=== PATIENT | female | born 1955 | race Caucasian/White ===

== ENCOUNTER 2021-04-09 08:23 | Emergency (ER) | payer BC ==
--- NOTE | 2021-04-09 09:37 | EDM.PDOC ---
ED HPI GENERAL MEDICAL PROBLEM - General Chief Complaint: Neurological Problem Stated Complaint: LT LEG PAIN\ SENT FROM [facility] Time Seen by Provider: 04/09/21 09:36 - History of Present Illness INITIAL COMMENTS - FREE TEXT/NARRATIVE: 65-year-old female presents to the emergency room with left leg weakness. And elevated blood pressure. Patient was seen at the walk-in clinic and referred to us. Patient has an unusual history she has had left leg weakness for most a week. This started immediately after she fell forward landing on her knees and hands. She skinned her knee on the left side does not have significant pain. But she has had weakness in this left leg since then. Denies significant back pain. She says she sees a chiropractor on a regular basis but does not have a regular physician. The patient also gives a history of having some left arm numbness and possible weakness about 6 weeks ago. This was associated with speech problems. It got better after a few minutes and has not returned. Patient has not sought medical attention. However did have the Covid vaccine. - Related Data Allergies Allergy/AdvReac Type Severity Reaction Status Date / Time No Known Allergies Allergy Verified 04/09/21 08:41 Home Meds: Home Meds . [No Known Home Meds] 04/09/21 [History] Past Medical History - Past Health History Medical/Surgical History: Denies Medical/Surgical History - Infectious Disease History Infectious Disease History: Reports: None Social & Family History - Tobacco Use Tobacco Use Status *Q: Never Tobacco User Second Hand Smoke Exposure: No - Recreational Drug Use Recreational Drug Use: No ED ROS GENERAL - Review of Systems Review Of Systems: See Below Constitutional: Reports: No Symptoms HEENT: Reports: No Symptoms, Other. Denies: Vision Change Respiratory: Reports: No Symptoms Cardiovascular: Reports: No Symptoms, Blood Pressure Problem (Patient has never been told she has had high blood pressure in the past but is sure up there today.) Endocrine: Reports: No Symptoms GI/Abdominal: Reports: No Symptoms : Reports: No Symptoms Musculoskeletal: Reports: No Symptoms Skin: Reports: No Symptoms Neurological: Reports: Difficulty Walking, Weakness ED EXAM, GENERAL - Physical Exam Exam: See Below Exam Limited By: No Limitations General Appearance: Alert, No Apparent Distress, Obese, Other (Pressure was initially 229/121 it is now down to 183/114 we will continue to observe this.) Eye Exam: Right Eye: Other (Patient's right eye is dilated compared to the left and this is fairly significant), Bilateral Eye: EOMI Ears: Normal External Exam, Normal Canal, Hearing Grossly Normal, Normal TMs Ear Exam: Right Ear: Tenderness Nose: Normal Inspection, Normal Mucosa, No Blood Throat/Mouth: Normal Inspection, Normal Lips, Normal Teeth, Normal Gums, Normal Oropharynx, Normal Voice, No Airway Compromise Head: Atraumatic, Normocephalic Neck: Normal Inspection, Supple, Non-Tender, Full Range of Motion. No: Lymphadenopathy (L), Lymphadenopathy (R) Respiratory/Chest: No Respiratory Distress, Lungs Clear, Normal Breath Sounds Cardiovascular: Regular Rate, Rhythm, No Edema, No Murmur GI/Abdominal: Normal Bowel Sounds, Soft, Non-Tender Back Exam: Normal Inspection. No: CVA Tenderness (L), CVA Tenderness (R), Vertebral Tenderness Extremities: Normal Inspection, Non-Tender, Other (Left leg is weaker than the right. Left arm Tinel's Phalen's reverse Phalen's is normal. No calf tenderness with palpation) Neurological: Alert, Oriented, Normal Cognition. No: No Motor/Sensory Deficits (Left leg is weaker with the knee flexors and extensors ankle flexors and extensors. And at the hip extensors. No sensory deficits), Abnormal Reflexes (And and reflexes are equal and appropriate at the patella tendon bilaterally diminished bilaterally at the Achilles.) Psychiatric: Normal Affect, Normal Mood Skin Exam: Warm, Dry, Intact #1 Interpretation EKG Date: 04/09/21 Rhythm: NSR Rate (Beats/Min): 75 [place]: Normal P-Wave: Present QRS: Other (Poor R wave progression precordial leads) ST-T: Other (Slightly prominent T waves V2 in the setting of no chest pain) Comparison: NA - No Prior EKG EKG Interpretation Comments: Abnormal EKG Course - Vital Signs Last Recorded V/S: Last Vital Signs Temp 36.8 C 04/09/21 08:31 Pulse 89 04/09/21 16:07 Resp 16 04/09/21 16:07 BP 163/84 H 04/09/21 16:07 Pulse Ox 99 04/09/21 16:07 - Orders/Labs/Meds Orders: Active Orders 24 hr Category Date Time Status CORONAVIRUS COVID-19 JUVENAL [[facility]] Stat Lab 04/09/21 15:11 Received Labs: Laboratory Tests 04/09/21 04/09/21 04/09/21 Range/Units 10:08 10:08 10:08 WBC 6.63 (3.98-10.04) K/mm3 RBC 5.35 H (3.98-5.22) M/mm3 Hgb 15.7 (11.2-15.7) gm/dl Hct 46.8 H (34.1-44.9) % MCV 87.5 (79.4-94.8) fl MCH 29.3 (25.6-32.2) pg MCHC 33.5 (32.2-35.5) g/dl RDW Std Deviation 43.5 (36.4-46.3) fL Plt Count 284 (182-369) K/mm3 MPV 9.5 (9.4-12.3) fl Neut % (Auto) 59.9 (34.0-71.1) % Lymph % (Auto) 28.4 (19.3-51.7) % [place] % (Auto) 6.8 (4.7-12.5) % Eos % (Auto) 0.8 (0.7-5.8) Baso % (Auto) 1.4 H (0.1-1.2) % Neut # (Auto) 3.98 (1.56-6.13) K/mm3 Lymph # (Auto) 1.88 (1.18-3.74) K/mm3 [place] # (Auto) 0.45 H (0.24-0.36) K/mm3 Eos # (Auto) 0.05 (0.04-0.36) K/mm3 Baso # (Auto) 0.09 H (0.01-0.08) K/mm3 Manual Slide Review Normal smear PT 9.9 (9.7-12.0) SECONDS INR < 0.93 APTT 23.7 (21.7-31.4) SECONDS Sodium 138 (136-145) mEq/L Potassium 4.5 (3.5-5.1) mEq/L Chloride 101 (98-107) mEq/L Carbon Dioxide 27 (21-32) mEq/L Anion Gap 14.5 (5-15) BUN 14 (7-18) mg/dL Creatinine 0.6 (0.55-1.02) mg/dL Est Cr Clr Drug Dosing 81.80 mL/min Estimated GFR (MDRD) > 60 (>60) mL/min BUN/Creatinine Ratio 23.3 H (14-18) Glucose 322 H (70-99) mg/dL Hemoglobin A1c ( - 5.6) % Calcium 9.1 (8.5-10.1) mg/dL Total Bilirubin 0.5 (0.2-1.0) mg/dL AST 13 L (15-37) U/L ALT 25 (14-59) U/L Alkaline Phosphatase 75 (46-116) U/L Troponin I < 0.017 (0.00-0.056) ng/mL Total Protein 6.8 (6.4-8.2) g/dl Albumin 3.5 (3.4-5.0) g/dl Globulin 3.3 gm/dL Albumin/Globulin Ratio 1.1 (1-2) 04/09/21 Range/Units 10:08 WBC (3.98-10.04) K/mm3 RBC (3.98-5.22) M/mm3 Hgb (11.2-15.7) gm/dl Hct (34.1-44.9) % MCV (79.4-94.8) fl MCH (25.6-32.2) pg MCHC (32.2-35.5) g/dl RDW Std Deviation (36.4-46.3) fL Plt Count (182-369) K/mm3 MPV (9.4-12.3) fl Neut % (Auto) (34.0-71.1) % Lymph % (Auto) (19.3-51.7) % [place] % (Auto) (4.7-12.5) % Eos % (Auto) (0.7-5.8) Baso % (Auto) (0.1-1.2) % Neut # (Auto) (1.56-6.13) K/mm3 Lymph # (Auto) (1.18-3.74) K/mm3 [place] # (Auto) (0.24-0.36) K/mm3 Eos # (Auto) (0.04-0.36) K/mm3 Baso # (Auto) (0.01-0.08) K/mm3 Manual Slide Review PT (9.7-12.0) SECONDS INR APTT (21.7-31.4) SECONDS Sodium (136-145) mEq/L Potassium (3.5-5.1) mEq/L Chloride (98-107) mEq/L Carbon Dioxide (21-32) mEq/L Anion Gap (5-15) BUN (7-18) mg/dL Creatinine (0.55-1.02) mg/dL Est Cr Clr Drug Dosing mL/min Estimated GFR (MDRD) (>60) mL/min BUN/Creatinine Ratio (14-18) Glucose (70-99) mg/dL Hemoglobin A1c 12.5 H ( - 5.6) % Calcium (8.5-10.1) mg/dL Total Bilirubin (0.2-1.0) mg/dL AST (15-37) U/L ALT (14-59) U/L Alkaline Phosphatase (46-116) U/L Troponin I (0.00-0.056) ng/mL Total Protein (6.4-8.2) g/dl Albumin (3.4-5.0) g/dl Globulin gm/dL Albumin/Globulin Ratio (1-2) Meds: Medications Discontinued Medications Generic Name Dose Route Start Last Admin Trade Name Freq PRN Reason Stop Dose Admin Aspirin 324 mg 04/09/21 14:46 04/09/21 15:06 Aspirin 81 Mg Tab.Chew PO 04/09/21 14:47 324 mg ONETIME ONE Administration Hydralazine HCl 10 mg 04/09/21 14:54 04/09/21 15:06 Hydralazine 20 Mg/Ml Sdv IVPUSH 04/09/21 14:55 10 mg ONETIME ONE Administration - Re-Assessments/Exams Free Text/Narrative Re-Assessment/Exam: 04/09/21 14:[address] shows no remarkable acute changes. CT of the lumbar spine shows significant change at L4-5 findings the cause severe central canal stenosis bilateral neuroforaminal stenosis is seen. This is noted to a lesser degree at L5-S1. I wonder if the changes at L4-5 are causing her left leg weakness triggered by her fall now 7 days ago. She has had no loss of bowel or bladder control. 04/09/21 14:48 After we are able to get everything Case was reviewed with Dr. Chong neurologist, at [facility] in [place] who believes the patient is best admitted for blood pressure control further evaluation he is not convinced her leg weakness is coming from the patient's back albeit possible he cannot exclude a lacunar infarct. 04/09/21 14:59 Patient be transferred to [facility] in [place] Case reviewed with Dr. Eisenberg patient has been given 3 and 24 mg of chewable aspirin and will be given a single dose of hydralazine 10 mg IV as her blood pressure shot up to 214/84. Departure - Departure Time of Disposition: 15:00 Disposition: DC/Tfer to [facility] 02 Clinical Impression: Leg weakness, TIA (transient ischemic attack) - Discharge Information Referrals: PCP,None [Primary Care Provider] - Forms: ED Department Discharge Sepsis Event Note (ED) - Evaluation Sepsis Screening Result: No Definite Risk - Focused Exam Vital Signs: Vital Signs Temp Pulse Resp BP Pulse Ox 04/09/21 16:07 89 16 163/84 H 99 04/09/21 11:00 82 16 161/80 H 99 04/09/21 08:52 81 16 188/98 H 98 04/09/21 08:31 36.8 C 83 16 229/121 H 98 - My Orders Last 24 Hours: My Active Orders 04/09/21 15:11 CORONAVIRUS COVID-19 JUVENAL [[facility]] Stat - Assessment/Plan Last 24 Hours: My Active Orders 04/09/21 15:11 CORONAVIRUS COVID-19 JUVENAL [[facility]] Stat
--- NOTE | 2021-04-09 11:28 | CR ---
Chest: Portable view of the chest was obtained. Comparison: No prior chest imaging is available. Heart size and mediastinum are within normal limits. Lungs are clear with no acute parenchymal change. Slight degenerative change is scattered within the spine with disc space narrowing and endplate spurring. Slight scoliosis is also noted. Impression: 1. Chronic findings as noted above. 2. Nothing acute is seen on portable chest x-ray. Diagnostic code #2
--- NOTE | 2021-04-09 12:17 | CT ---
Head CT Technique: Multiple axial sections through the brain were obtained. Intravenous contrast was not utilized. Reconstructed coronal and sagittal images were obtained. Comparison: No prior intracranial imaging is available. Findings: Ventricles along with basal cisterns and sulci over the convexities are within normal limits for the patient's age. No abnormal parenchymal densities are seen. No evidence of intracranial hemorrhage is seen. No midline shift or mass-effect is seen. Bone window settings were reviewed. Left mastoid sinus shows mucosal thickening. Right mastoid sinus is clear. Visualized paranasal sinuses show nothing acute. No acute calvarial abnormality is seen. Impression: 1. Mucosal thickening within the left mastoid sinus. Please rule out any symptoms of mastoiditis. 2. Other portions of the noncontrast head CT study appear within normal limits for the patient's age. Diagnostic code #2
--- NOTE | 2021-04-09 12:26 | CT ---
MRI lumbar spine Technique: Multiple axial sections were obtained from above the T12-L1 disc inferiorly through the coccyx. Reconstructed coronal and sagittal images were obtained. Comparison: No prior lumbar spine imaging is available. Findings: T12-L1: Severe disc space narrowing is noted with vacuum disc phenomena. No central canal stenosis is seen. Neural foramina is patent. L1-2: Posterior disc is preserved. No central canal stenosis is seen. Neural foramina are patent. L2-3: Very slight circumferential disc bulge is seen. Posterior disc maintains a concave margin. No central canal stenosis is seen. Neural foramina are patent. L3-4: Mild circumferential disc bulge is seen. Degenerative apophyseal change is noted which contains vacuum disc phenomena. Findings cause mild central canal stenosis. There appears to be mild right-sided neural foraminal stenosis. Left neural foramen is patent. L4-5: Mild diffuse circumferential disc bulge is seen. Severe degenerative apophyseal change is noted which contains vacuum disc phenomena. Findings cause severe central canal stenosis. Bilateral neural foraminal stenosis is also seen. L5-S1: Slight diffuse posterior disc bulge is seen. No central canal stenosis is noted. Bilateral neural foraminal stenosis appears to be present. No acute fracture or abnormal subluxation is seen. There is slight spondylolisthesis seen of the coccyx which is believed to be chronic. Impression: 1. Degenerative change as described above most severe at L4-5 with severe central canal stenosis. Diagnostic code #3
[2021-04-09] MEDS ORDERED: Aspirin 81 MG Tab.Chew PO ONE (14:46)
[2021-04-09] MEDS ORDERED: hydrALAZINE 20 MG/ML SDV IVPUSH ONE (14:54)
[2021-04-09 15:11] LABS: HEMOGLOBIN A1C 12.5 %
== END 2021-04-09 16:05 ==
LOC: JD.ED 08:23
DX: G45.9 Transient cerebral ischemic attack, unspecified (principal); R94.31 Abnormal electrocardiogram [ECG] [EKG]; Z20.822 Contact with and (suspected) exposure to COVID-19
CPT/HCPCS: 36415; 70450; 71045; 72131; 80053; 83036; 84484; 85025; 85610; 85730; 87635; 93005; 96374; 99285; A9270; J0360; U0002